=== PATIENT | female | born 1990 | race African-American/Black ===

== ENCOUNTER 2016-03-23 10:35 | Emergency (ER) | payer SELFPAY ==
[~2016-03-23] VITALS: Ht 170.2 cm; Wt 81.6 kg
[~2016-03-23 10:35] MED LIST: HYDR-971 PO; SULF1TAB24 PO
[2016-03-23 10:45] VITALS: BP 138/95
[2016-03-23] MEDS ORDERED: TETRACAINE 0.5% OPHTH SOLUTION 4ML BOTTLE. OD ONE (11:30)
[2016-03-23] MEDS ORDERED: FLUORESCEIN OPHTH TEST STRIP. OD ONE (11:30)
[2016-03-23] MEDS ORDERED: POLY10DR OD (11:44)
--- NOTE | 2016-03-23 11:44 | PHYS DOC ---
Past Medical History Past Medical History: Asthma Past Surgical History: No Surgical History Alcohol Use: Occasionally Drug Use: Marijuana Adult General Chief Complaint Chief Complaint: EYE PROBLEMS HPI HPI Patient is a 26 year old female presents emergency room today with complaint of right eye irritation and redness that began yesterday. Patient does wear extended-wear contacts. His current contacts and been in for approximately 30 days. Patient denies any eye injury. She has not been grinding any metal, banging on any metal or welding Review of Systems Review of Systems Constitutional: Denies fever or chills [] Eyes: Denies change in visual acuity, redness, or eye pain [] HENT: Denies nasal congestion or sore throat [] Respiratory: Denies cough or shortness of breath [] Cardiovascular: No additional information not addressed in HPI [] GI: Denies abdominal pain, nausea, vomiting, bloody stools or diarrhea [] : Denies dysuria or hematuria [] Musculoskeletal: Denies back pain or joint pain [] Integument: Denies rash or skin lesions [] Neurologic: Denies headache, focal weakness or sensory changes [] Endocrine: Denies polyuria or polydipsia [] Current Medications Current Medications Current Medications Medications (Trade) Dose Ordered Sig/Francisca Start Time Stop Time Status Last Admin Dose Admin Fluorescein Sodium (Ful-Alma) 1 strip 1X ONCE 03/23/16 11:30 03/23/16 11:31 DC 03/23/16 11:29 1 STRIP Tetracaine HCl (Tetracaine) 1 drop 1X ONCE 03/23/16 11:30 03/23/16 11:31 DC 03/23/16 11:29 1 DROP Allergies Allergies Allergies Coded Allergies Type Severity Reaction Last Updated Verified No Known Drug Allergies 10/01/13 No Physical Exam Physical Exam Constitutional: Well developed, well nourished, no acute distress, non-toxic appearance. [] HENT: Normocephalic, atraumatic, bilateral external ears normal, oropharynx moist, no oral exudates, nose normal. [] Eyes: Patient's right eye with a moderate amount of conjunctival injection. Tear film is yellowish white. There is no upper or lower lid swelling. There are no periorbital lesions. Anterior chamber is deep, clear and quiet. Extraocular motions are intact and 6 cardinal positions of gaze. Neck: Normal range of motion, no tenderness, supple, no stridor. [] Cardiovascular:Heart rate regular rhythm, no murmur [] Lungs & Thorax: Bilateral breath sounds clear to auscultation [] Abdomen: Bowel sounds normal, soft, no tenderness, no masses, no pulsatile masses. [] Skin: Warm, dry, no erythema, no rash. [] Back: No tenderness, no CVA tenderness. [] Extremities: No tenderness, no cyanosis, no clubbing, ROM intact, no edema. [] Neurologic: Alert and oriented X 3, normal motor function, normal sensory function, no focal deficits noted. [] Psychologic: Affect normal, judgement normal, mood normal. [] Current Patient Data Vital Signs Vital Signs Date Time Temp Pulse Resp B/P Pulse Ox O2 Delivery O2 Flow Rate FiO2 03/23/16 10:45 99.0 83 16 98 Room Air 99.0 EKG EKG [] Radiology/Procedures Radiology/Procedures Procedure note: Tetracaine ophthalmic drops were introduced to patient's right eye. Fluorescein strip was introduced to the lateral canthus of the right eye. There is no fluorescein uptake uniforms sales representative of a corneal abrasion or corneal ulcer. There are no dendritic lesions. Course & Med Decision Making Course & Med Decision Making Pertinent Labs and Imaging studies reviewed. (See chart for details) [] Dragon Disclaimer Dragon Disclaimer This electronic medical record was generated, in whole or in part, using a voice recognition dictation system. Departure Departure Impression: Primary Impression: Acute bacterial conjunctivitis Disposition: HOME, SELF-CARE Condition: GOOD Referrals: NO PCP (PCP) CARLOS BECKER MD Patient Instructions: Bacterial Conjunctivitis, [id number] Additional Instructions: 1. Take the medications as prescribed. 2. Review the discharge instructions for self-care and reasons to return the emergency department. 3. Call the clarifier operator number provided with your discharge paperwork for follow-up appointment. 4. Do not wear contact in your right eye for one week.. Do not put the same contact back in your right eye. Scripts Polymyxin B Sulf/Trimethoprim (Polytrim Eye Drops)10 Ml Drops1 Drop OD Q6HRS 7 Days Prov:VON GÓMEZ 03/23/16 Problem Qualifiers Primary Impression: Acute bacterial conjunctivitis Laterality: right Qualified Code: H10.31 - Unspecified acute conjunctivitis , right eye VON GÓMEZ Mar 23, 2016 11:44
== END 2016-03-23 12:00 | disposition home or self-care (01) ==
LOC: ER 10:35
DX: H10.89 Other conjunctivitis (principal); B99.9 Unspecified infectious disease; J45.909 Unspecified asthma, uncomplicated; F12.10 Cannabis abuse, uncomplicated
CPT/HCPCS: 99283

== ENCOUNTER 2016-10-28 15:36 | Emergency (ER) | payer SELFPAY ==
[~2016-10-28] VITALS: Ht 170.2 cm; Wt 97.5 kg
[~2016-10-28 15:36] MED LIST changes: +POLY10DR OD
[2016-10-28 16:01] VITALS: BP 141/80
--- NOTE | 2016-10-28 16:15 | PHYS DOC ---
Past Medical History Past Medical History: Asthma Past Surgical History: No Surgical History Alcohol Use: Occasionally Drug Use: Marijuana Adult General Chief Complaint Chief Complaint: ABDOMINAL PAIN HPI HPI Patient is a 26 year old [f__sex] who presents with [] Review of Systems Review of Systems Constitutional: Denies fever or chills [] Eyes: Denies change in visual acuity, redness, or eye pain [] HENT: Denies nasal congestion or sore throat [] Respiratory: Denies cough or shortness of breath [] Cardiovascular: No additional information not addressed in HPI [] GI: Denies abdominal pain, nausea, vomiting, bloody stools or diarrhea [] : Denies dysuria or hematuria [] Musculoskeletal: Denies back pain or joint pain [] Integument: Denies rash or skin lesions [] Neurologic: Denies headache, focal weakness or sensory changes [] Endocrine: Denies polyuria or polydipsia [] Current Medications Current Medications Current Medications Medications (Trade) Dose Ordered Sig/Francisca Start Time Stop Time Status Last Admin Dose Admin Azithromycin (Zithromax) 1,000 mg 1X ONCE 10/28/16 16:30 10/28/16 16:31 Ceftriaxone Sodium (Rocephin Im) 250 mg 1X ONCE 10/28/16 16:30 10/28/16 16:31 Metronidazole (Flagyl) 2,000 mg 1X ONCE 10/28/16 16:30 10/28/16 16:31 Allergies Allergies Allergies Coded Allergies Type Severity Reaction Last Updated Verified No Known Drug Allergies 10/28/16 No Physical Exam Physical Exam Constitutional: Well developed, well nourished, no acute distress, non-toxic appearance. [] HENT: Normocephalic, atraumatic, bilateral external ears normal, oropharynx moist, no oral exudates, nose normal. [] Eyes: PERRLA, EOMI, conjunctiva normal, no discharge. [] Neck: Normal range of motion, no tenderness, supple, no stridor. [] Cardiovascular:Heart rate regular rhythm, no murmur [] Lungs & Thorax: Bilateral breath sounds clear to auscultation [] Abdomen: Bowel sounds normal, soft, no tenderness, no masses, no pulsatile masses. [] Skin: Warm, dry, no erythema, no rash. [] Back: No tenderness, no CVA tenderness. [] Extremities: No tenderness, no cyanosis, no clubbing, ROM intact, no edema. [] Neurologic: Alert and oriented X 3, normal motor function, normal sensory function, no focal deficits noted. [] Psychologic: Affect normal, judgement normal, mood normal. [] Current Patient Data Vital Signs Vital Signs Date Time Temp Pulse Resp B/P (MAP) Pulse Ox O2 Delivery O2 Flow Rate FiO2 10/28/16 16:01 98.4 67 20 141/80 (100) 96 Room Air 98.4 Lab Values Laboratory Tests Test 10/28/16 15:19 POC Urine HCG, Qualitative Hcg negative (Negative) EKG EKG [] Radiology/Procedures Radiology/Procedures [] Course & Med Decision Making Course & Med Decision Making Pertinent Labs and Imaging studies reviewed. (See chart for details) [] Dragon Disclaimer Dragon Disclaimer This electronic medical record was generated, in whole or in part, using a voice recognition dictation system. Departure Departure Referrals: NO PCP (PCP) ABHISHEK SHIN MD Oct 28, 2016 16:14
[2016-10-28 16:30] LABS: BILIRUBIN,URINE NEGATIVE (NEG); GLUCOSE,URINE NEGATIVE (NEG); NITRITE,URINE NEGATIVE (NEG); PROTEIN,URINE NEGATIVE (NEG-TRACE); UROBILINOGEN,URINE 0.2 mg/dL (0.2 mg/dL)
[2016-10-28] MEDS ORDERED: cefTRIAXone IM 250 MG VIAL IM ONE (16:30)
[2016-10-28] MEDS ORDERED: AZITHROMYCIN 250 MG TABLET. PO ONE (16:30)
[2016-10-28] MEDS ORDERED: metroNIDAZOLE 500 MG TABLET PO ONE (16:30)
--- NOTE | 2016-10-28 16:37 | PHYS DOC ---
Past Medical History Past Medical History: Asthma Past Surgical History: No Surgical History Alcohol Use: Occasionally Drug Use: Marijuana Adult General Chief Complaint Chief Complaint: ABDOMINAL PAIN HPI HPI Patient is a 26 year old female with no significant medical history who presents today requesting to be tested and treated for STDs. Patient states her significant other called her and informed her he was treated for chlamydia. Patient has no symptoms, but would like to be tested and treated. She is also stating she is on her menstrual cycle and has some cramping which is not unusual for her cycles. Review of Systems Review of Systems Constitutional: Denies fever or chills [] Eyes: Denies change in visual acuity, redness, or eye pain [] HENT: Denies nasal congestion or sore throat [] Respiratory: Denies cough or shortness of breath [] Cardiovascular: No additional information not addressed in HPI [] GI: STD treatment, : Denies dysuria or hematuria [] Musculoskeletal: Denies back pain or joint pain [] Integument: Denies rash or skin lesions [] Neurologic: Denies headache, focal weakness or sensory changes [] Endocrine: Denies polyuria or polydipsia [] Current Medications Current Medications Current Medications Medications (Trade) Dose Ordered Sig/Francisca Start Time Stop Time Status Last Admin Dose Admin Azithromycin (Zithromax) 1,000 mg 1X ONCE 10/28/16 16:30 10/28/16 16:31 DC 10/28/16 16:18 1,000 MG Ceftriaxone Sodium (Rocephin Im) 250 mg 1X ONCE 10/28/16 16:30 10/28/16 16:31 DC 10/28/16 16:19 250 MG Metronidazole (Flagyl) 2,000 mg 1X ONCE 10/28/16 16:30 10/28/16 16:31 DC 10/28/16 16:18 2,000 MG Allergies Allergies Allergies Coded Allergies Type Severity Reaction Last Updated Verified No Known Drug Allergies 10/28/16 No Physical Exam Physical Exam Constitutional: Well developed, well nourished, no acute distress, non-toxic appearance. [] HENT: Normocephalic, atraumatic, bilateral external ears normal, oropharynx moist, no oral exudates, nose normal. [] Eyes: PERRLA, EOMI, conjunctiva normal, no discharge. [] Neck: Normal range of motion, no tenderness, supple, no stridor. [] Cardiovascular:Heart rate regular rhythm, no murmur [] Lungs & Thorax: Bilateral breath sounds clear to auscultation [] Abdomen: Bowel sounds normal, soft, no tenderness, no masses, no pulsatile masses. [] Pelvic exam External pelvic appears normal, cervix is closed no CMT, no adnexal tenderness, small amount of bright red blood in the vaginal vault consistent with her menstrual cycle. Skin: Warm, dry, no erythema, no rash. [] Back: No tenderness, no CVA tenderness. [] Extremities: No tenderness, no cyanosis, no clubbing, ROM intact, no edema. [] Neurologic: Alert and oriented X 3, normal motor function, normal sensory function, no focal deficits noted. [] Psychologic: Affect normal, judgement normal, mood normal. [] Current Patient Data Vital Signs Vital Signs Date Time Temp Pulse Resp B/P (MAP) Pulse Ox O2 Delivery O2 Flow Rate FiO2 10/28/16 16:01 98.4 67 20 141/80 (100) 96 Room Air 98.4 Lab Values Laboratory Tests Test 10/28/16 15:19 POC Urine HCG, Qualitative Hcg negative (Negative) Microbiology 10/28/16 Wet Prep - Final, Complete EKG EKG [] Radiology/Procedures Radiology/Procedures [] Course & Med Decision Making Course & Med Decision Making Pertinent Labs and Imaging studies reviewed. (See chart for details) Patient is in the ED with request to be tested and treated for STDs. Swabs are obtained and sent to lab. She was given Flagyl Rocephin and azithromycin. Negative urine hCG. Wet prep was positive for Trichomonas. Dragon Disclaimer Dragon Disclaimer This electronic medical record was generated, in whole or in part, using a voice recognition dictation system. Departure Departure Impression: Primary Impression: Trichomonas vaginitis Disposition: HOME, SELF-CARE Condition: STABLE Referrals: NO PCP (PCP) Follow-up with the health department for further STD concerns Patient Instructions: Trichomoniasis Additional Instructions: You tested positive for trichomonas and were treated for it as well as gonorrhea and chlamydia. Use protection all the time. Contact all your partners , let them know you were treated for STDs and ask them to seek treatment too. EDWINA FLEMING APRN Oct 28, 2016 16:37
[2016-10-28 16:56] LABS: BACTERIA,URINE FEW /HPF (0-FEW); SQUAMOUS EPITHELIAL CELL,UR MOD /LPF
[2016-10-28 16:57] LABS: TRICHOMONAS,URINE PRESENT
--- NOTE | 2016-11-01 15:57 | VNOTE ---
CALL BACK NOTE CALL BACK Microbiology 10/28/16 Wet Prep - Final, Complete Patient is positive for gonorrhea, she was treated, called the patient, spoke with grandmother who stated patient is not present.I Requested to request patient to call us in the ED. EDWINA FLEMING APRN Nov 01, 2016 15:57
== END 2016-10-28 17:13 | disposition home or self-care (01) ==
LOC: ER 15:36
DX: A59.01 Trichomonal vulvovaginitis (principal); J45.909 Unspecified asthma, uncomplicated
CPT/HCPCS: 81001; 81025; 87491; 87591; 96372; 99284; J0696; Q0111; Q0144

== ENCOUNTER 2016-11-03 00:09 | Emergency (ER) | payer SELFPAY ==
[~2016-11-03] VITALS: Ht 170.2 cm; Wt 97.5 kg
[2016-11-03 00:27] VITALS: BP 116/68
[2016-11-03] MEDS ORDERED: FLUC150T PO (00:37)
--- NOTE | 2016-11-03 00:39 | PHYS DOC ---
Past Medical History Past Medical History: Asthma Past Surgical History: No Surgical History Alcohol Use: Occasionally Drug Use: Marijuana Adult General Chief Complaint Chief Complaint: ABDOMINAL PAIN HPI HPI Patient is a 26 year old female presents to the emergency department with request for recheck of her STD testing and possible yeast infection. SHe states that she has a thick white discharge that is irritating. She was evaluated in the emergency department on October 28, 6 days prior to this ER visit. That time , she stated that her boyfriend had advised her he was positive for chlamydia. Patient's prep was positive for Trichomonas. Patient was treated in the emergency department for gonorrhea, Chlamydia and Trichomonas. In review of the chart, patient was notified on November 01 that her gonorrhea was positive but that she had been treated and was advised no further follow-up at this time was indicated. She denies pelvic or abdominal pain. Review of Systems Review of Systems Constitutional: Denies fever or chills [] Eyes: Denies change in visual acuity, redness, or eye pain [] HENT: Denies nasal congestion or sore throat [] Respiratory: Denies cough or shortness of breath [] Cardiovascular: No additional information not addressed in HPI [] GI: Denies abdominal pain, nausea, vomiting, bloody stools or diarrhea [] : Denies dysuria or hematuria; complaining of vaginal discharge with itching [] Musculoskeletal: Denies back pain or joint pain [] Integument: Denies rash or skin lesions [] Neurologic: Denies headache, focal weakness or sensory changes [] Endocrine: Denies polyuria or polydipsia [] Allergies Allergies Allergies Coded Allergies Type Severity Reaction Last Updated Verified No Known Drug Allergies 10/28/16 No Physical Exam Physical Exam Constitutional: Well developed, well nourished, no acute distress, non-toxic appearance. [] Neck: Normal range of motion, no tenderness, supple, no stridor. [] Cardiovascular:Heart rate regular rhythm, no murmur [] Lungs & Thorax: Bilateral breath sounds clear to auscultation [] Abdomen: Bowel sounds normal, soft, no tenderness, no masses, no pulsatile masses. : deferred[] Skin: Warm, dry, no erythema, no rash. [] Back: No tenderness, no CVA tenderness. [] Extremities: No tenderness, no cyanosis, no clubbing, ROM intact, no edema. [] Neurologic: Alert and oriented X 3, normal motor function, normal sensory function, no focal deficits noted. [] Psychologic: Affect normal, judgement normal, mood normal. [] Current Patient Data Vital Signs Vital Signs Date Time Temp Pulse Resp B/P (MAP) Pulse Ox O2 Delivery O2 Flow Rate FiO2 11/03/16 00:27 98.1 61 18 98 Room Air 98.1 Lab Values Laboratory Tests Test 11/03/16 00:20 Urine Collection Type Unknown Urine Color Yellow Urine Clarity Cloudy Urine pH 6.0 Urine Specific [place] >=1.030 Urine Protein Negative mg/dL (NEG-TRACE) Urine Glucose (UA) Negative mg/dL (NEG) Urine Ketones (Stick) Negative mg/dL (NEG) Urine Blood Negative (NEG) Urine Nitrite Negative (NEG) Urine Bilirubin Negative (NEG) Urine Urobilinogen Dipstick 0.2 mg/dL (0.2 mg/dL) Urine Leukocyte Esterase Moderate (NEG) Urine RBC 0 /HPF (0-2) Urine WBC 11-20 /HPF (0-4) Urine Squamous Epithelial Cells Many /LPF Urine Bacteria Many /HPF (0-FEW) Urine Mucus Marked /LPF Urine Yeast Present /HPF EKG EKG [] Radiology/Procedures Radiology/Procedures [] Course & Med Decision Making Course & Med Decision Making Pertinent Labs and Imaging studies reviewed. (See chart for details) UA with moderate bacteria and leukocytes UCG on visit 10/28/2016 negative. Patient her menstrual cycle at that time. Pelvic is not indicated at this time. She does describe a thick white discharge that is itching. with patient's history of recent pelvic infection, dosing of antibiotics and recent menstrual cycle she is at increased risk for yeast vaginitis. [] Dragon Disclaimer Dragon Disclaimer This electronic medical record was generated, in whole or in part, using a voice recognition dictation system. Departure Departure Impression: Primary Impression: Urinary tract infection Additional Impression: Yeast vaginitis Disposition: 01 HOME, SELF-CARE Condition: STABLE Referrals: NO PCP (PCP) [facility] [place] Patient Instructions: Urinary Tract Infection, Vaginitis, [id number] Scripts Sulfamethoxazole/Trimethoprim (BACTRIM DS TABLET) 1 Each Tablet 1 TAB PO BID, #20 TAB Prov: ABELARDO BOLANOS APRN 11/03/16 Fluconazole (DIFLUCAN) 150 Mg Tablet 1 TAB PO ONCE, #1 TAB 1 Refill May repeat in 7 days if symptoms persist Prov: ABELARDO BOLANOS APRN 11/03/16 Problem Qualifiers Primary Impression: Urinary tract infection Urinary tract infection type: acute cystitis Hematuria presence: without hematuria Qualified Codes: N30.00 - Acute cystitis without hematuria ABELARDO BOLANOS APRN Nov 03, 2016 00:39
[2016-11-03 00:42] LABS: BILIRUBIN,URINE NEGATIVE (NEG); GLUCOSE,URINE NEGATIVE (NEG); NITRITE,URINE NEGATIVE (NEG); PROTEIN,URINE NEGATIVE (NEG-TRACE); UROBILINOGEN,URINE 0.2 mg/dL (0.2 mg/dL)
[2016-11-03 00:48] LABS: BACTERIA,URINE MANY /HPF (0-FEW); RBC,URINE 0 /HPF (0-2); SQUAMOUS EPITHELIAL CELL,UR MANY /LPF; YEAST,URINE PRESENT /HPF
[2016-11-03] MEDS ORDERED: SULF1TAB24 PO (00:51)
== END 2016-11-03 01:13 | disposition home or self-care (01) ==
LOC: ER 00:09
DX: N30.00 Acute cystitis without hematuria (principal); B37.3 Candidiasis of vulva and vagina; J45.909 Unspecified asthma, uncomplicated
CPT/HCPCS: 81001; 99283

== ENCOUNTER 2016-11-24 20:41 | Emergency (ER) | payer SELFPAY ==
[~2016-11-24 20:41] MED LIST changes: +FLUC150T PO
[2016-11-24 20:50] VITALS: BP 121/80
[2016-11-24] MEDS ORDERED: AMOX1TAB11 PO (21:09)
--- NOTE | 2016-11-24 21:09 | PHYS DOC ---
Past Medical History Past Medical History: Asthma Past Surgical History: No Surgical History Alcohol Use: Occasionally Drug Use: Marijuana Adult General Chief Complaint Chief Complaint: Congestion HPI HPI Patient is a 26 year old female presents to the emergency department with a 2 day history of upper respiratory symptoms. She reports chills without measured fever. Sore throat, cough. Review of Systems Review of Systems Constitutional: Denies fever or chills [] Eyes: Denies change in visual acuity, redness, or eye pain [] HENT: Nasal congestion, sore throat, ear pain Respiratory: Non Productive cough Cardiovascular: Denies Chest pain GI: Denies abdominal pain, nausea, vomiting, bloody stools or diarrhea [] : Denies dysuria or hematuria [] Musculoskeletal: Denies back pain or joint pain [] Integument: Denies rash or skin lesions [] Neurologic: Denies headache, focal weakness or sensory changes [] Endocrine: Denies polyuria or polydipsia [] Allergies Allergies Allergies Coded Allergies Type Severity Reaction Last Updated Verified No Known Drug Allergies 10/28/16 No Physical Exam Physical Exam Constitutional: Well developed, well nourished, no acute distress, non-toxic appearance. [] HENT: Normocephalic, atraumatic, bilateral external ears normal right tympanic membrane with erythema and effusion, oropharynx moist posterior pharynx injected , no oral exudates, nose normal. [] Eyes: PERRLA, EOMI, conjunctiva normal, no discharge. [] Neck: Normal range of motion, no tenderness, supple, no stridor. [] Cardiovascular:Heart rate regular rhythm, no murmur [] Lungs & Thorax: Bilateral breath sounds clear to auscultation [] Abdomen: Bowel sounds normal, soft, no tenderness, no masses, no pulsatile masses. [] Skin: Warm, dry, no erythema, no rash. [] Back: No tenderness, no CVA tenderness. [] Extremities: No tenderness, no cyanosis, no clubbing, ROM intact, no edema. [] Neurologic: Alert and oriented X 3, normal motor function, normal sensory function, no focal deficits noted. [] Psychologic: Affect normal, judgement normal, mood normal. [] EKG EKG [] Radiology/Procedures Radiology/Procedures [] Course & Med Decision Making Course & Med Decision Making Pertinent Labs and Imaging studies reviewed. (See chart for details) [] Justin Disclaimer Dragon Disclaimer This electronic medical record was generated, in whole or in part, using a voice recognition dictation system. Departure Departure Impression: Primary Impression: Otitis media Additional Impression: URI (upper respiratory infection) Disposition: HOME, SELF-CARE Condition: STABLE Referrals: NO PCP (PCP) [facility] [place] Patient Instructions: Otitis Media, Adult, Upper Respiratory Infection, Adult Scripts Amoxicillin/Potassium Clav (AMOX TR-K CLV 875-125 MG TAB) 1 Each Tablet 1 TAB PO BID, #20 TAB Prov: ABELARDO BOLANOS APRN 11/24/16 Problem Qualifiers Primary Impression: Otitis media Otitis media type: serous Chronicity: acute Laterality: right Recurrence : not specified as recurrent Qualified Codes: H65.01 - Acute serous otitis media, right ear Additional Impression: URI (upper respiratory infection) URI type: unspecified viral URI Qualified Codes: J06.9 - Acute upper respiratory infection, unspecified; B97.89 - Other viral agents as the cause of diseases classified elsewhere ABELARDO BOLANOS APRN Nov 24, 2016 21:09
== END 2016-11-24 21:43 | disposition home or self-care (01) ==
LOC: ER 20:41
DX: H65.01 Acute serous otitis media, right ear (principal); J06.9 Acute upper respiratory infection, unspecified; B97.89 Other viral agents as the cause of diseases classified elsewhere; J45.909 Unspecified asthma, uncomplicated; F12.10 Cannabis abuse, uncomplicated
CPT/HCPCS: 99283

== ENCOUNTER 2016-12-10 11:57 | Emergency (ER) | payer SELFPAY ==
[~2016-12-10] VITALS: Ht 170.2 cm; Wt 86.2 kg
[~2016-12-10 11:57] MED LIST changes: +AMOX1TAB11 PO
[2016-12-10 12:00] VITALS: BP 140/82
[2016-12-10] MEDS ORDERED: TRAM-48 PO (12:33)
[2016-12-10] MEDS ORDERED: AMOX1TAB61 PO (12:33)
--- NOTE | 2016-12-10 12:34 | PHYS DOC ---
Past Medical History Past Medical History: Asthma Past Surgical History: No Surgical History Alcohol Use: Occasionally Drug Use: Marijuana Adult General Chief Complaint Chief Complaint: DENTAL PROBLEM HPI HPI Patient is a 26 year old female presents to the emergency department stating that she's been having dental pain for the last 2 days. She states that she broke her tooth. She is complaining of pain along the left lower jawline. She denies any fever, chills or nausea vomiting. She does state that she's been having sinus pressure discomfort of frontal and maxillary sinus areas. She states that bilateral ears appear to be full. Patient states she's been taken 400 mg of ibuprofen for the pain and discomfort with minimal relief. She does state that she's been using some type of a shelf fill her in the tooth area for pain and discomfort which is helped briefly. He does state that she has a dental appointment next week. Review of Systems Review of Systems Constitutional: Denies fever or chills [] Eyes: Denies change in visual acuity, redness, or eye pain [] HENT: Denies nasal congestion or sore throat. Complaint of dental pain left lower jawline. Respiratory: Denies cough or shortness of breath [] Cardiovascular: No additional information not addressed in HPI [] GI: Denies abdominal pain, nausea, vomiting, bloody stools or diarrhea [] : Denies dysuria or hematuria [] Musculoskeletal: Denies back pain or joint pain [] Integument: Denies rash or skin lesions [] Neurologic: Denies headache, focal weakness or sensory changes [] Endocrine: Denies polyuria or polydipsia [] Allergies Allergies Allergies Coded Allergies Type Severity Reaction Last Updated Verified No Known Drug Allergies 10/28/16 No Physical Exam Physical Exam Constitutional: Well developed, well nourished, no acute distress, non-toxic appearance. [] HENT: Normocephalic, atraumatic, bilateral external ears normal, oropharynx moist, no oral exudates, nose normal. Bilateral TM appears bulging and pink. Bilateral frontal and maxillary sinus tenderness. Patient with #21 tooth that appears to be cracked. No abscess noted. Eyes: PERRLA, EOMI, conjunctiva normal, no discharge. [] Neck: Normal range of motion, no tenderness, supple, no stridor. [] Cardiovascular:Heart rate regular rhythm, no murmur [] Lungs & Thorax: Bilateral breath sounds clear to auscultation [] Skin: Warm, dry, no erythema, no rash. [] Extremities: No tenderness, no cyanosis, no clubbing, ROM intact, no edema. [] Neurologic: Alert and oriented X 3, normal motor function, normal sensory function, no focal deficits noted. [] Psychologic: Affect normal, judgement normal, mood normal. [] Current Patient Data Vital Signs Vital Signs Date Time Temp Pulse Resp B/P (MAP) Pulse Ox O2 Delivery O2 Flow Rate FiO2 12/10/16 12:00 98.4 79 18 99 Room Air 98.4 EKG EKG [] Radiology/Procedures Radiology/Procedures [] Course & Med Decision Making Course & Med Decision Making Pertinent Labs and Imaging studies reviewed. (See chart for details) Patient was recommended to use the dental wax that she's been using for pain and discomfort. Also recommended dental wax [id number]. Recommended 800 mg of ibuprofen. She'll be provided with Ultram for severe pain and discomfort which she was instructed will cause drowsiness do not take any be alert and oriented. Patient was also recommended to keep her dental appointment this week. Patient will be discharged home in stable condition with signs and symptoms to return back to emergency department. All questions and concerns been answered at the patient's bedside. [] Dragon Disclaimer Dragon Disclaimer This electronic medical record was generated, in whole or in part, using a voice recognition dictation system. Departure Departure Impression: Primary Impression: Tooth fracture Disposition: 01 HOME, SELF-CARE Condition: STABLE Referrals: NO PCP (PCP) Patient Instructions: Tooth Fracture Additional Instructions: Activity as tolerated. Ibuprofen 800 mg every 8 hours with food will help with pain and discomfort. If he did develop an upset stomach stopped taking the medication. Continue to use the dental gel or you may also attempt to use dental wax to help with the pain and discomfort. Ultram for severe pain and discomfort. This medication will cause drowsiness do not take any be alert and oriented. Your follow-up appointment which you have with your dentist next week. Return back to emergency prior signs symptoms of become worse. Scripts Tramadol Hcl (ULTRAM) 50 Mg Tablet 1 TAB PO Q6HRS, #15 TAB Prov: KAN JUNIOR APRN 12/10/16 Amoxicillin/Potassium Clav (AUGMENTIN 875-125 TABLET) 1 Each Tablet 1 TAB PO BID, #20 TAB Prov: KAN JUNIOR APRN 12/10/16 Problem Qualifiers Primary Impression: Tooth fracture Encounter type: initial encounter KAN JUNIOR APRN Dec 10, 2016 12:34
== END 2016-12-10 13:00 | disposition home or self-care (01) ==
LOC: ER 11:57
DX: S02.5XXA Fracture of tooth (traumatic), initial encounter for closed fracture (principal); J45.909 Unspecified asthma, uncomplicated; X58.XXXA Exposure to other specified factors, initial encounter; Y93.89 Activity, other specified; Y92.89 Other specified places as the place of occurrence of the external cause; Y99.8 Other external cause status
CPT/HCPCS: 99283

== ENCOUNTER 2016-12-23 10:01 | Emergency (ER) | payer SELFPAY ==
[~2016-12-23] VITALS: Ht 170.2 cm; Wt 90.7 kg
[~2016-12-23 10:01] MED LIST changes: +AMOX1TAB61 PO; +TRAM-48 PO
[2016-12-23] MEDS ORDERED: KETOROLAC 30 MG/ML INJ. ONE (10:27)
[2016-12-23] MEDS ORDERED: KETOROLAC 30 MG/ML INJ. IV ONE (10:30)
[2016-12-23] MEDS ORDERED: PROCHLORPERAZINE 10 MG/2 ML VIAL. IV ONE (10:30)
[2016-12-23] MEDS ORDERED: IV NORMAL SALINE 1000ML BAG 1,000 ML IV ONE (10:30)
[2016-12-23] MEDS ORDERED: diphenhydrAMINE 50 MG/ML VIAL IVP ONE (10:30)
[2016-12-23 10:39] VITALS: BP 116/71
[2016-12-23 10:40] LABS: BASO % 0 % (0-3); EOS % 1 % (0-3); HEMATOCRIT 41.4 % (36.0-47.0); HEMOGLOBIN 13.4 g/dL (12.0-15.5); LYMPH # 1.4 x10^3/uL (1.0-4.8); LYMPH % 12 % (24-48); MEAN CORPUSCULAR HEMOGLOBIN 30 pg (25-35); MEAN CORPUSCULAR HGB CONC 32 g/dL (31-37); MEAN CORPUSCULAR VOLUME 93 fL (79-100); MONO % 7 % (0-9); NEUT % 79 % (31-73); PLATELET COUNT 307 x10^3/uL (140-400); RED BLOOD COUNT 4.46 x10^6/uL (3.50-5.40); RED CELL DISTRIBUTION WIDTH 14.1 % (11.5-14.5); WHITE BLOOD COUNT 11.2 x10^3/uL (4.0-11.0)
[2016-12-23 10:42] LABS: BILIRUBIN,URINE NEGATIVE (NEG); GLUCOSE,URINE NEGATIVE (NEG); NITRITE,URINE NEGATIVE (NEG); PROTEIN,URINE NEGATIVE (NEG-TRACE); UROBILINOGEN,URINE 0.2 mg/dL (0.2 mg/dL)
[2016-12-23 10:47] LABS: BARBITURATES NEG (NEG); BENZODIAZEPINES NEG (NEG); CANNABINOIDS POS (NEG); COCAINE NEG (NEG); METHADONE NEG (NEG); OPIATES NEG (NEG); PHENCYCLIDINE NEG (NEG)
[2016-12-23 10:50] LABS: CALCIUM 8.9 mg/dL (8.5-10.1); CREATININE 0.9 mg/dL (0.6-1.0); GFR 91.6; POTASSIUM 3.7 mmol/L (3.5-5.1)
[2016-12-23 10:51] LABS: SQUAMOUS EPITHELIAL CELL,UR MANY /LPF
[2016-12-23 10:52] LABS: BACTERIA,URINE FEW /HPF (0-FEW); RBC,URINE OCC /HPF (0-2); WBC,URINE OCC /HPF (0-4)
[2016-12-23] MEDS ORDERED: SUMA50TA3 PO (11:20)
--- NOTE | 2016-12-23 11:21 | PHYS DOC ---
Past Medical History Past Medical History: Asthma Past Surgical History: No Surgical History Alcohol Use: Occasionally Drug Use: Marijuana Adult General Chief Complaint Chief Complaint: HEADACHE HPI HPI Patient is a 26 year old female with no significant medical history who presents today with 10 out of 10 frontal migraine headache that began 2 days ago with photophobia. Patient denies any nausea vomiting. Patient denies this headache being the worst headache in her life. She is smiling and laughing as the draw her labs. She states this headache was a gradual onset. Review of Systems Review of Systems Constitutional: Denies fever or chills [] Eyes: Denies change in visual acuity, redness, or eye pain [] HENT: Denies nasal congestion or sore throat [] Respiratory: Denies cough or shortness of breath [] Cardiovascular: No additional information not addressed in HPI [] GI: Denies abdominal pain, nausea, vomiting, bloody stools or diarrhea [] : Denies dysuria or hematuria [] Musculoskeletal: Denies back pain or joint pain [] Integument: Denies rash or skin lesions [] Neurologic: Reports headache, denies focal weakness or sensory changes [] Current Medications Current Medications Current Medications Medications (Trade) Dose Ordered Sig/Francisca Start Time Stop Time Status Last Admin Dose Admin Diphenhydramine HCl (Benadryl) 25 mg 1X ONCE 12/23/16 10:30 12/23/16 10:31 DC 12/23/16 10:26 25 MG Ketorolac Tromethamine (Toradol) 30 mg STK-MED ONCE 12/23/16 10:27 12/23/16 10:28 DC Prochlorperazine Edisylate (Compazine) 10 mg 1X ONCE 12/23/16 10:30 12/23/16 10:31 DC 12/23/16 10:27 10 MG Sodium Chloride 1,000 ml @ 1,000 mls/hr 1X ONCE 12/23/16 10:30 12/23/16 11:29 12/23/16 10:27 1,000 MLS/HR Allergies Allergies Allergies Coded Allergies Type Severity Reaction Last Updated Verified No Known Drug Allergies 10/28/16 No Physical Exam Physical Exam Constitutional: Well developed, well nourished, no acute distress, non-toxic appearance. [] HENT: Normocephalic, atraumatic, bilateral external ears normal, oropharynx moist, no oral exudates, nose normal. [] Eyes: PERRLA, EOMI, conjunctiva normal, no discharge. [] Neck: Normal range of motion, no tenderness, supple, no stridor. [] Cardiovascular:Heart rate regular rhythm, no murmur [] Lungs & Thorax: Bilateral breath sounds clear to auscultation [] Abdomen: Bowel sounds normal, soft, no tenderness, no masses, no pulsatile masses. [] Skin: Warm, dry, no erythema, no rash. [] Back: No tenderness, no CVA tenderness. [] Extremities: No tenderness, no cyanosis, no clubbing, ROM intact, no edema. [] Neurologic: Alert and oriented X 3, normal motor function, normal sensory function, no focal deficits noted. Cranial nerves II through XII intact Psychologic: Affect normal, judgement normal, mood normal. [] Current Patient Data Vital Signs Vital Signs Date Time Temp Pulse Resp B/P (MAP) Pulse Ox O2 Delivery O2 Flow Rate FiO2 12/23/16 10:39 66 16 100 12/23/16 10:05 97.9 118/79 (92) Room Air 97.9 Lab Values Laboratory Tests Test 12/23/16 10:10 12/23/16 10:12 12/23/16 10:15 Urine Collection Type Void Urine Color Yellow Urine Clarity Clear Urine pH 6.0 Urine Specific Trion 1.025 Urine Protein Negative mg/dL (NEG-TRACE) Urine Glucose (UA) Negative mg/dL (NEG) Urine Ketones (Stick) Negative mg/dL (NEG) Urine Blood Negative (NEG) Urine Nitrite Negative (NEG) Urine Bilirubin Negative (NEG) Urine Urobilinogen Dipstick 0.2 mg/dL (0.2 mg/dL) Urine Leukocyte Esterase Negative (NEG) Urine RBC Occ /HPF (0-2) Urine WBC Occ /HPF (0-4) Urine Squamous Epithelial Cells Many /LPF Urine Bacteria Few /HPF (0-FEW) Urine Mucus Mod /LPF Urine Opiates Screen Neg (NEG) Urine Methadone Screen Neg (NEG) Urine Barbiturates Neg (NEG) Urine Phencyclidine Screen Neg (NEG) Urine Amphetamine/Methamphetamine Neg (NEG) Urine Benzodiazepines Screen Neg (NEG) Urine Cocaine Screen Neg (NEG) Urine Cannabinoids Screen Pos (NEG) Urine Ethyl Alcohol Neg (NEG) POC Urine HCG, Qualitative Hcg negative (Negative) White Blood Count 11.2 x10^3/uL (4.0-11.0) H Red Blood Count 4.46 x10^6/uL (3.50-5.40) Hemoglobin 13.4 g/dL (12.0-15.5) Hematocrit 41.4 % (36.0-47.0) Mean Corpuscular Volume 93 fL (79-100) Mean Corpuscular Hemoglobin 30 pg (25-35) Mean Corpuscular Hemoglobin Concent 32 g/dL (31-37) Red Cell Distribution Width 14.1 % (11.5-14.5) Platelet Count 307 x10^3/uL (140-400) Neutrophils (%) (Auto) 79 % (31-73) H Lymphocytes (%) (Auto) 12 % (24-48) L Monocytes (%) (Auto) 7 % (0-9) Eosinophils (%) (Auto) 1 % (0-3) Basophils (%) (Auto) 0 % (0-3) Neutrophils # (Auto) 8.9 x10^3uL (1.8-7.7) H Lymphocytes # (Auto) 1.4 x10^3/uL (1.0-4.8) Monocytes # (Auto) 0.8 x10^3/uL (0.0-1.1) Eosinophils # (Auto) 0.1 x10^3/uL (0.0-0.7) Basophils # (Auto) 0.0 x10^3/uL (0.0-0.2) Sodium Level 140 mmol/L (136-145) Potassium Level 3.7 mmol/L (3.5-5.1) Chloride Level 104 mmol/L (98-107) Carbon Dioxide Level 27 mmol/L (21-32) Anion Gap 9 (6-14) Blood Urea Nitrogen 10 mg/dL (7-20) Creatinine 0.9 mg/dL (0.6-1.0) Estimated GFR (Cockcroft-Gault) 91.6 Glucose Level 98 mg/dL (70-99) Calcium Level 8.9 mg/dL (8.5-10.1) Laboratory Tests 12/23/16 10:15 Laboratory Tests 12/23/16 10:15 EKG EKG [] Radiology/Procedures Radiology/Procedures [] Course & Med Decision Making Course & Med Decision Making Pertinent Labs and Imaging studies reviewed. (See chart for details) Patient is in the ED with a migraine headache that began 2 days ago. We gave Toradol Compazine and Benadryl in the ED with very good relief. She was discharged with Imitrex. Follow-up with the PCP in 1-2 weeks. Dragon Disclaimer Dragon Disclaimer This electronic medical record was generated, in whole or in part, using a voice recognition dictation system. Departure Departure Impression: Primary Impression: Migraine headache Disposition: HOME, SELF-CARE Condition: STABLE Referrals: NO PCP (PCP) follow up with your doctor in one week Patient Instructions: Migraine Headache, [id number] Additional Instructions: You were seen for a migraine headache. Take the prescribed medicine as needed. Follow-up with your own doctor in 1-2 weeks. Come back to the ED symptoms worsen. Scripts Sumatriptan Succinate (IMITREX) 50 Mg Tablet 1 TAB PO UD, #9 TAB 1 Refill Prov: EDWINA FLEMING APRN 12/23/16 Problem Qualifiers Primary Impression: Migraine headache Migraine type: without aura Status migrainosus presence: without status migrainosus Intractability: not intractable Qualified Codes: G43.009 - Migraine without aura, not intractable, without status migrainosus EDWINA FLEMING APRN Dec 23, 2016 11:21
== END 2016-12-23 11:24 | disposition home or self-care (01) ==
LOC: ER 10:01
DX: G43.009 Migraine without aura, not intractable, without status migrainosus (principal); J45.909 Unspecified asthma, uncomplicated
CPT/HCPCS: 36415; 80048; 80307; 81001; 81025; 85025; 96374; 96375; 99284; J0780; J1200; J1885; J7030; G0479

== ENCOUNTER 2017-02-23 21:28 | Emergency (ER) | payer SELFPAY ==
[~2017-02-23] VITALS: Ht 170.2 cm; Wt 90.7 kg
[~2017-02-23 21:28] MED LIST changes: +SUMA50TA3 PO
[2017-02-23 21:34] VITALS: BP 135/94
[2017-02-23] MEDS ORDERED: TETRACAINE 0.5% OPHTH SOLUTION 4ML BOTTLE. OD ONE (22:00)
[2017-02-23] MEDS ORDERED: FLUORESCEIN OPHTH TEST STRIP. OD ONE (22:00)
[2017-02-23] MEDS ORDERED: OFLO5DRO OD (22:06)
--- NOTE | 2017-02-23 22:06 | PHYS DOC ---
Past Medical History Past Medical History: Asthma Past Surgical History: No Surgical History Alcohol Use: Occasionally Drug Use: Marijuana Adult General Chief Complaint Chief Complaint: EYE PROBLEMS HPI HPI Patient is a 27 year old female presents to the emergency department stating that she developed pain to the right eye this morning when she was rubbing it. She states that she took her contact lens unwitting continue to have discomfort. She states that she did have some discolored drainage that initially. She states that now she has clear drainage. The eye area does appear to be red. She states she did have some blurred vision initially however the vision has cleared at this time. She denies any pain at the current time. Review of Systems Review of Systems Constitutional: Denies fever or chills [] Eyes: Denies change in visual acuity, complaining of redness and pain to the right eye. HENT: Denies nasal congestion or sore throat [] Respiratory: Denies cough or shortness of breath [] Cardiovascular: No additional information not addressed in HPI [] GI: Denies abdominal pain, nausea, vomiting, bloody stools or diarrhea [] : Denies dysuria or hematuria [] Musculoskeletal: Denies back pain or joint pain [] Integument: Denies rash or skin lesions [] Neurologic: Denies headache, focal weakness or sensory changes [] Endocrine: Denies polyuria or polydipsia [] All other systems were reviewed and found to be within normal limits, except as documented in this note. Current Medications Current Medications Current Medications Medications (Trade) Dose Ordered Sig/Francisca Start Time Stop Time Status Last Admin Dose Admin Fluorescein Sodium (Ful-Alma) 1 strip 1X ONCE 02/23/17 22:00 02/23/17 22:01 02/23/17 21:47 1 STRIP Tetracaine HCl (Tetracaine) 1 drop 1X ONCE 02/23/17 22:00 02/23/17 22:01 02/23/17 21:47 1 DROP Allergies Allergies Allergies Coded Allergies Type Severity Reaction Last Updated Verified No Known Drug Allergies 10/28/16 No Physical Exam Physical Exam Constitutional: Well developed, well nourished, no acute distress, non-toxic appearance. [] HENT: Normocephalic, atraumatic, bilateral external ears normal, oropharynx moist, no oral exudates, nose normal. [] Eyes: PERRLA, EOMI, conjunctiva red clear discharge noted Neck: Normal range of motion, no tenderness, supple, no stridor. [] Cardiovascular: Patient pain corpsmen dry Lungs & Thorax: No respiratory distress noted Skin: Warm, dry, no erythema, no rash. [] Extremities: No tenderness, no cyanosis, no clubbing, ROM intact, no edema. [] Neurologic: Alert and oriented X 3, normal motor function, normal sensory function, no focal deficits noted. [] Psychologic: Affect normal, judgement normal, mood normal. [] Current Patient Data Vital Signs Vital Signs Date Time Temp Pulse Resp B/P (MAP) Pulse Ox O2 Delivery O2 Flow Rate FiO2 02/23/17 21:34 98.1 95 20 98 Room Air 98.1 EKG EKG [] Radiology/Procedures Radiology/Procedures [] Course & Med Decision Making Course & Med Decision Making Pertinent Labs and Imaging studies reviewed. (See chart for details) Tetracaine was placed into the right eye with no visual foreign bodies noted, upper lid was inverted with no foreign body noted. Fluorescein was placed into the eye was no uptake noted. Patient will be discharged home on ofloxacin with recommendations to follow-up with oral urologist in the next week. Recommended that she did not place the contact lenses back into her eyes for the next 7 days. Recommended that she continue to wear her glasses. Patient was also recommended to use good handwashing when touching the eye. Patient will be discharged home in stable condition signs and symptoms return back to the emergency department has been provided. All questions and concerns been answered at the patients bedside [] Dragon Disclaimer Dragon Disclaimer This electronic medical record was generated, in whole or in part, using a voice recognition dictation system. Departure Departure Impression: Primary Impression: Acute bacterial conjunctivitis Disposition: 01 HOME, SELF-CARE Condition: STABLE Referrals: NO PCP (PCP) Patient Instructions: Bacterial Conjunctivitis, [id number] Additional Instructions: Activity as tolerated. Medications as prescribed. Do not place contact lenses back into the eyes until the redness is completely resolved. Good handwashing is recommended when touching the eye. Follow-up with your income tax preparer tomorrow. Return back to the emergency department for signs and symptoms of become worse. Scripts Ofloxacin (OCUFLOX) 5 Ml Drops 1-2 DROP OD BID, #[address] 1-2 drops in the right eye for the next 5-7 days Prov: KAN JUNIOR APRN 02/23/17 Problem Qualifiers Primary Impression: Acute bacterial conjunctivitis Laterality: right Qualified Codes: H10.31 - Unspecified acute conjunctivitis , right eye KAN JUNIOR APRN Feb 23, 2017 22:06
== END 2017-02-23 22:10 | disposition home or self-care (01) ==
LOC: ER 21:28
DX: B99.9 Unspecified infectious disease (principal); H10.89 Other conjunctivitis; H10.31 Unspecified acute conjunctivitis, right eye; J45.909 Unspecified asthma, uncomplicated; F12.10 Cannabis abuse, uncomplicated
CPT/HCPCS: 99283

== ENCOUNTER 2017-05-30 22:33 | Emergency (ER) | payer OTHER ==
[2017-05-30 23:30] LABS: URINE HCG POC HCG NEGATIVE (Negative)
[2017-05-30 23:35] LABS: BILIRUBIN,URINE MODERATE (NEG); CLARITY,URINE CLOUDY; COLOR,URINE RED; GLUCOSE,URINE NEGATIVE (NEG); NITRITE,URINE NEGATIVE (NEG); PH,URINE 5.5; PROTEIN,URINE 100 mg/dL (NEG-TRACE)
[2017-05-30 23:43] LABS: RBC,URINE >40 /HPF (0-2)
[2017-05-30 23:44] LABS: BACTERIA,URINE FEW /HPF (0-FEW); SQUAMOUS EPITHELIAL CELL,UR MOD /LPF
[2017-05-30] MEDS: KETOROLAC 60 MG/2 ML INJ. IM (23:49)
== END 2017-05-31 00:10 | disposition home or self-care (01) ==
LOC: ER 05-31 00:10
DX: N94.6 Dysmenorrhea, unspecified (principal)
CPT/HCPCS: 81001; 81025; 96372; 99283-25; J1885

== ENCOUNTER 2017-10-13 04:37 | Emergency (ER) | payer SELFPAY, OTHER ==
[2017-10-13] MEDS ORDERED: FLUORESCEIN OPHTH TEST STRIP. (04:52)
[2017-10-13] MEDS ORDERED: TETRACAINE 0.5% OPHTH SOLUTION 4ML BOTTLE. (04:52)
[2017-10-13] MEDS: MOXIFLOXACIN 0.5% OPHTH SOLUTION 3ML BOTTLE. OD (05:40)
[2017-10-13] MEDS: TETRACAINE 0.5% OPHTH SOLUTION 4ML BOTTLE. OS (05:45)
[2017-10-13] MEDS: FLUORESCEIN OPHTH TEST STRIP. OS (05:45)
== END 2017-10-13 06:12 | disposition home or self-care (01) ==
LOC: ER 04:37
DX: H16.001 Unspecified corneal ulcer, right eye (principal)
CPT/HCPCS: 99284

== ENCOUNTER 2018-10-30 12:48 | Emergency (ER) | payer SELFPAY ==
[~2018-10-30] VITALS: Ht 170.2 cm; Wt 101.6 kg
[~2018-10-30 12:48] MED LIST changes: +GATI2.5D OD; +HYDR-3164 PO; -HYDR-971 PO; +OFLO5DRO OD
[2018-10-30 13:27] VITALS: BP 126/70
[2018-10-30] MEDS ORDERED: ALBUTEROL SULFATE 2.5 MG/3 ML NEBU. NEB ONE (13:30)
--- NOTE | 2018-10-30 13:41 | PHYS DOC ---
Past Medical History Past Medical History: Asthma Additional Past Medical Histor: seasonal allergies Additional Past Surgical Histo: cyst drained from left neck Smoking: Cigarettes, Less than 1pk/day Alcohol Use: Rarely Drug Use: Marijuana Adult General Chief Complaint Chief Complaint: COUGH HPI HPI Patient is a 28 year old AA female, accompanied by her grandmother, who presents to the emergency room with complaints of a productive cough with green sputum and intermittent shortness of breath for the last week. Patient also complains of some nasal congestion. She reports a history of asthma and seasonal allergies, she states she is not taking any medications for either of these conditions this time. Patient currently rates her discomfort a 4 out of 10 on the pain scale. She denies any alleviating or exacerbating factors. ROS Patient denies any fever, sore throat, nausea, vomiting, diarrhea, abdominal pain, chest pain, or back pain. She reports fullness in both of her ears, nasal congestion, runny nose, intermittent wheezing, intermittent shortness of breath, and a productive cough with green sputum for the last week. She denies any headache or dizziness. All other ROS is neg unless otherwise noted in HPI. Review of Systems Review of Systems See Above Current Medications Current Medications Current Medications Medications (Trade) Dose Ordered Sig/Francisca Start Time Stop Time Status Last Admin Dose Admin Albuterol Sulfate (Ventolin Neb Soln) 2.5 mg 1X ONCE 10/30/18 13:30 10/30/18 13:31 DC Allergies Allergies Allergies Coded Allergies Type Severity Reaction Last Updated Verified No Known Drug Allergies 10/28/16 No Physical Exam Physical Exam See Above Constitutional: Well developed, well nourished, no acute distress, non-toxic appearance. [] HENT: Normocephalic, atraumatic, bilateral external ears normal, bilateral TMs normal, cobblestone appearance of posterior pharynx without erythema, oropharynx moist, no oral exudates, nasal turbinates edematous and erythematous bilaterally, no maxillary or frontal sinus tenderness to palpation Eyes: PERRLA, EOMI, conjunctiva normal, no discharge. [] Neck: Normal range of motion, no tenderness, supple, no stridor. [] Cardiovascular:Heart rate regular rhythm, no murmur [] Lungs & Thorax: Bilateral breath sounds clear to auscultation in upper lobes bilaterally, posterior lower lobes slightly diminished with few expiratory wheezes bilaterally, no retractions, speaks full sentences, no increased work of breathing [] Skin: Warm, dry, no erythema, no rash. [] Extremities: No cyanosis, no clubbing, ROM intact, no edema. [] Neurologic: Alert and oriented X 3, no focal deficits noted. [] Psychologic: Affect normal, judgement normal, mood normal. [] Current Patient Data Vital Signs Vital Signs Date Time Temp Pulse Resp B/P (MAP) Pulse Ox O2 Delivery O2 Flow Rate FiO2 10/30/18 13:27 98.1 76 16 126/70 (88) 98 Room Air 98.1 EKG EKG [] Radiology/Procedures Radiology/Procedures Patient was refused to wait for an albuterol treatment in the emergency department, she reported having a machine at home and will take a nebulizer treatment when she gets home. Course & Med Decision Making Course & Med Decision Making Pertinent Labs and Imaging studies reviewed. (See chart for details) [] Dragon Disclaimer Dragon Disclaimer This electronic medical record was generated, in whole or in part, using a voice recognition dictation system. Departure Departure Impression: Primary Impression: Allergic rhinitis Additional Impression: Allergic cough Disposition: HOME, SELF-CARE Condition: STABLE Referrals: NO PCP (PCP) Patient Instructions: Allergic Rhinitis Additional Instructions: STOP SMOKING. Fill the prescription(s) and use as directed. Recommend that you take 10 mg of generic Zyrtec (cetirizine) at bedtime and use over the counter Flonase (fluticasone) nasal spray 2 sprays each nostril once daily in the morning. You may take Tylenol or ibuprofen as needed for pain/fever. Increase clear fluids. Avoid triggers such as smoke, fragrance, dust, and pollen. You may take OTC cough suppressants as needed. Follow-up with your primary care doctor if symptoms persist, return to the ER if symptoms worsen. Scripts Albuterol Sulfate (Proair Hfa) 8.5 Gm Hfa.aer.ad 2 PUFF INH PRN Q6HRS PRN for SHORTNESS OF BREATH for 30 Days, #1 INHALER 1 Refill Prov: NICHOLAS TRUONG APRN 10/30/18 Problem Qualifiers Primary Impression: Allergic rhinitis Allergic rhinitis trigger: unspecified Allergic rhinitis seasonality: unspecified Qualified Codes: J30.9 - Allergic rhinitis, unspecified NICHOLAS TRUONG TOURIST ADVISER Oct 30, 2018 13:40
[2018-10-30] MEDS ORDERED: ALBU2.5V8 INH (14:02)
== END 2018-10-30 14:07 | disposition home or self-care (01) ==
LOC: ER 12:48
DX: J45.909 Unspecified asthma, uncomplicated (principal); F17.210 Nicotine dependence, cigarettes, uncomplicated
CPT/HCPCS: 99283